=== PATIENT | female | born 1940 | race Caucasian/White ===

== ENCOUNTER → 2016-10-27 | Day surgery (SDC) | payer MEDICARE, OTHER ==
[2016-10-26 12:38] LABS: PROTHROMBIN TIME 10.6 SECONDS (9.0-12.4)
[~2016-10-27] MED LIST: ANTIVERT25 MG PO; GLUCOPHAGE500 MG PO; GLYBURIDE5 MG PO; HCTZ W/SPIRONOL1 TAB PO; LOMOTIL,LONOX 01 TAB PO; PRAVACHOL80 MG PO; VICTOZA6 MG/ML SC; VITAMIN D5000 I2 PO; ZEGERID 40 MG-11 CAP PO; ZOFRAN4 MG PO
== END | disposition home or self-care (01) ==
LOC: SDC 10-22 09:30
PROVIDERS: Surgery
DX: E04.1 Nontoxic single thyroid nodule (principal); Z53.9 Procedure and treatment not carried out, unspecified reason

== ENCOUNTER 2017-01-16 14:12 | Emergency (ER) | payer MEDICARE, OTHER ==
[~2017-01-16] VITALS: Wt 83.0 kg
[2017-01-16 14:18] VITALS: BP 198/80
[2017-01-16] MEDS ORDERED: CEFADROXIL500 M1 PO (14:33)
== END 2017-01-16 14:38 | disposition home or self-care (01) ==
LOC: ED 14:12
DX: S61.012A Laceration without foreign body of left thumb without damage to nail, initial encounter (principal); Z90.710 Acquired absence of both cervix and uterus; Z79.899 Other long term (current) drug therapy; Z88.5 Allergy status to narcotic agent; Z79.82 Long term (current) use of aspirin; W26.8XXA Contact with other sharp object(s), not elsewhere classified, initial encounter; Y93.89 Activity, other specified; Y92.89 Other specified places as the place of occurrence of the external cause; Y99.9 Unspecified external cause status

== ENCOUNTER 2017-03-28 15:41 | Emergency (ER) | payer MEDICARE, OTHER ==
[~2017-03-28] VITALS: Wt 77.1 kg
[~2017-03-28 15:41] MED LIST changes: +CEFADROXIL500 M1 PO
[2017-03-28 15:49] VITALS: BP 156/78
[2017-03-28] MEDS ORDERED: NAPROSYN500 MG PO (16:56)
== END 2017-03-28 17:09 | disposition home or self-care (01) ==
LOC: ED 15:41
DX: S80.02XA Contusion of left knee, initial encounter (principal); S00.531A Contusion of lip, initial encounter; M25.512 Pain in left shoulder; M54.2 Cervicalgia; Z88.6 Allergy status to analgesic agent; Z79.899 Other long term (current) drug therapy; W18.09XA Striking against other object with subsequent fall, initial encounter; Y93.89 Activity, other specified; Y92.89 Other specified places as the place of occurrence of the external cause; Y99.8 Other external cause status

== ENCOUNTER → 2017-07-26 | Outpatient (CLI) | payer MEDICARE, OTHER ==
[~2017-07-26] MED LIST changes: +NAPROSYN500 MG PO
== END | disposition home or self-care (01) ==
LOC: MAMMO 13:24
DX: Z12.31 Encounter for screening mammogram for malignant neoplasm of breast (principal)

== ENCOUNTER → 2019-01-31 | Outpatient (CLI) | payer OTHER ==
[~2019-01-31] MED LIST changes: +CLOPIDOGREL75 MG PO; +GLUCOPHAGE500 M1 PO; +HYDROCHLOROTHIA25 M1 PO; +LANTUS SOL100 UNIT/1 SQ; +LATANOPROST2.5 ML OP; +NORVASC5 MG PO; +VICTOZA 3-PAK6 MG/ML SC; +VITAMIN D-32000 UNI1 PO
[2019-01-31 14:38] LABS: BASO # 0.1 10*3/uL (0.0-0.1); BASO % 0.6 % (0.0-1.0); EOS # 0.2 10*3/uL (0.0-0.4); EOS % 2.1 % (1.0-4.0); HEMATOCRIT 42.7 % (37.0-47.0); HEMOGLOBIN 13.5 g/dl (12.0-16.0); LYMPH % 31.2 % (27.0-41.0); MEAN CELL VOLUME 99.1 fl (81.0-99.0); MEAN CORPUSCULAR HGB 31.3 pg (27.0-31.0); MEAN CORPUSCULAR HGB CONC 31.6 g/dl (33.0-37.0); MEAN PLATELET VOLUME 12.8 fl (9.6-12.3); MONO # 0.7 10*3/uL (0.1-1.0); MONO % 7.1 % (3.0-9.0); NEUT # 5.6 10*3/uL (2.3-7.9); NEUT % 58.8 % (47.0-73.0); PLATELET COUNT AUTOMATED 227 10*3/uL (130-400); RED BLOOD COUNT 4.31 10*6/uL (4.10-5.10); RED CELL DISTRI WIDTH 13.6 % (0-14.5); WHITE BLOOD COUNT 9.6 10*3/uL (4.8-10.8)
[2019-01-31 15:08] LABS: ALBUMIN 3.3 gm/dl (3.1-4.5); ALKALINE PHOSPHATASE 58 U/L (45-117); BUN 23 mg/dl (7-24); CHLORIDE 103 mmol/L (98-107); CHOLESTEROL 242 mg/dL (<200); CPK 53 U/L (26-192); CREATININE 0.98 mg/dL (0.55-1.02); FREE T4 1.16 ng/dl (0.76-1.46); HDL CHOLESTEROL 48 mg/dl (40-60); LDL CHOLESTEROL 153 mg/dL (9-159); SGOT/AST 23 IU/L (3-35); SGPT/ALT 24 U/L (12-78); SODIUM 138 mmol/L (136-145); TOTAL PROTEIN 7.5 gm/dL (6.4-8.2); TRIGLYCERIDES 207 mg/dl (<150); VLDL CHOLESTEROL 41 mg/dL (6-40)
[2019-01-31 15:13] LABS: THYROID STIM HORMONE (HS) 0.493 uIU/ml (0.358-4.75)
== END | disposition home or self-care (01) ==
LOC: LAB 13:07
PROVIDERS: Internal Medicine
DX: E55.9 Vitamin D deficiency, unspecified (principal); E11.9 Type 2 diabetes mellitus without complications; D51.9 Vitamin B12 deficiency anemia, unspecified; D52.9 Folate deficiency anemia, unspecified; Z79.899 Other long term (current) drug therapy

== ENCOUNTER → 2019-02-05 | Outpatient (CLI) | payer OTHER | END | disposition home or self-care (01) | LOC: LAB 12:17 | DX: E55.9 Vitamin D deficiency, unspecified (principal); E11.9 Type 2 diabetes mellitus without complications; D51.9 Vitamin B12 deficiency anemia, unspecified; D52.9 Folate deficiency anemia, unspecified ==

== ENCOUNTER 2020-05-05 10:23 | Observation (INO) | payer OTHER ==
[2020-05-05] VITALS (9 sets, daily range): BP systolic 135–180; BP diastolic 51–80
[~2020-05-05] VITALS: Ht 154.9 cm; Wt 75.0 kg
--- NOTE | 2020-05-05 10:50 | NUR ---
GISELA TO OBTAIN IV ACCESS AFTER 2 ATTEMPTS FROM EMS AND MULTIPLE FROM THIS RN.
[2020-05-05 11:06] LABS: BASO # 0.1 10*3/uL (0.0-0.1); BASO % 0.6 % (0.0-1.0); EOS # 0.1 10*3/uL (0.0-0.4); EOS % 1.4 % (1.0-4.0); HEMATOCRIT 40.6 % (37.0-47.0); LYMPH # 3.1 10*3/uL (1.3-4.4); LYMPH % 33.1 % (27.0-41.0); MEAN CELL VOLUME 98.1 fl (81.0-99.0); MEAN CORPUSCULAR HGB 30.9 pg (27.0-31.0); MEAN CORPUSCULAR HGB CONC 31.5 g/dl (33.0-37.0); MEAN PLATELET VOLUME 12.4 fl (9.6-12.3); MONO # 0.7 10*3/uL (0.1-1.0); MONO % 7.6 % (3.0-9.0); NEUT # 5.4 10*3/uL (2.3-7.9); NEUT % 57.2 % (47.0-73.0); PLATELET COUNT AUTOMATED 219 10*3/uL (130-400); RED BLOOD COUNT 4.14 10*6/uL (4.10-5.10); RED CELL DISTRI WIDTH 13.6 % (0-14.5); WHITE BLOOD COUNT 9.5 10*3/uL (4.8-10.8)
[2020-05-05 11:16] LABS: ACT PARTIAL THROMBO TIME 22.9 SECONDS (20.0-32.1)
[2020-05-05 11:22] LABS: ALBUMIN 3.2 gm/dl (3.1-4.5); ALKALINE PHOSPHATASE 61 U/L (45-117); BUN 27 mg/dl (7-24); CHLORIDE 105 mmol/L (98-107); CREATININE 1.32 mg/dL (0.55-1.02); LIPASE 190 U/L (73-393); POTASSIUM 4.1 mmol/L (3.5-5.1); SGOT/AST 16 IU/L (3-35); SGPT/ALT 19 U/L (12-78); SODIUM 138 mmol/L (136-145); TOTAL PROTEIN 7.9 gm/dL (6.4-8.2)
[2020-05-05 11:25] LABS: TROPONIN I < 0.015 ng/ml (<0.045)
[2020-05-05 13:06] LABS: BILIRUBIN Negative (Negative); BLOOD Negative (Negative); CLARITY Clear (Clear); COLOR Yellow (Yellow); GLUCOSE Negative (Negative); KETONE Negative (Negative); LEUKO ESTERASE Negative (Negative); NITRITE Negative (Negative); UROBILINOGEN 0.2 E.U./dl (0.0-1.0)
[2020-05-05 13:18] LABS: BACTERIA TRACE; WBC 0-2 wbc/hpf (0-5)
--- NOTE | 2020-05-05 13:52 | NUR ---
UP TO BEDSIDE COMMODE WITH ASSIST.
--- NOTE | 2020-05-05 14:36 | NUR ---
LYING IN BED SEMI FOWLERS, NO DISTRESS OR COMPLAINTS.
--- NOTE | 2020-05-05 17:00 | NUR ---
A 80, admitted to 5E, under the services of Dr. RADHA LOUIS,TRAY Martinez with a diagnosis of . Chief complaint is ARF AND DEHYDRATION. Patient arrived via bed from ER. Monitor applied. Initial assessment completed. Vital signs taken and recorded. DR. RADHA LOUIS,TRAY Martinez notified of admission to the unit. Orders received. See assessment for past medical history, medications and allergies. Patient and/or family oriented to unit. [facility] visitation policy reviewed. Clothing/patient valuable form completed. MARITZA LOPES
[2020-05-05] MEDS ORDERED: ATENOLOL25 MG PO (17:29)
[2020-05-05] MEDS ORDERED: ASPIRIN ADULT L81 M1 PO (18:33)
[2020-05-05] MEDS ORDERED: VITAMIN D350 MC2 PO (18:36)
[2020-05-05] MEDS ORDERED: ZETIA10 MG PO (18:38)
--- NOTE | 2020-05-05 18:40 | NUR ---
MEDS UPDATED PER PT LIST ATENOLOL DOSE IS QUESTIONABLE
--- NOTE | 2020-05-05 20:00 | NUR ---
PATIENT RESTING IN BED. VOICES NO COMPLAINTS. RESPIRATIONS EASY, NON LABORED. BED IN LOWEST POSITION,CALL LIGHT WITHIN REACH. BED ALARM ON. WILL CONTINUE TO MONITOR.
--- NOTE | 2020-05-05 21:00 | NUR ---
PATIENT UP TO BEDSIDE COMMODE, LEFT SIDE WEAKNESS NOTED. PATIENT 2 ASSIST.
[2020-05-06] VITALS: BP 127/5; BP 127/50
--- NOTE | 2020-05-06 04:00 | NUR ---
PATIENT SLEEPING. NO SIGNS OF DISTRESS. RESPIRATIONS EASY, NON LABORED. BED IN LOWEST POSITION,CALL LIGHT WITHIN REACH. WILL CONTINUE TO MONITOR.
[2020-05-06 06:54] LABS: BASO # 0.1 10*3/uL (0.0-0.1); BASO % 0.5 % (0.0-1.0); EOS # 0.2 10*3/uL (0.0-0.4); EOS % 2.4 % (1.0-4.0); HEMATOCRIT 41.2 % (37.0-47.0); LYMPH # 3.5 10*3/uL (1.3-4.4); LYMPH % 37.6 % (27.0-41.0); MEAN CELL VOLUME 96.7 fl (81.0-99.0); MEAN CORPUSCULAR HGB 30.8 pg (27.0-31.0); MEAN CORPUSCULAR HGB CONC 31.8 g/dl (33.0-37.0); MEAN PLATELET VOLUME 12.1 fl (9.6-12.3); MONO # 0.8 10*3/uL (0.1-1.0); MONO % 8.2 % (3.0-9.0); NEUT # 4.8 10*3/uL (2.3-7.9); NEUT % 51.1 % (47.0-73.0); PLATELET COUNT AUTOMATED 201 10*3/uL (130-400); RED BLOOD COUNT 4.26 10*6/uL (4.10-5.10); RED CELL DISTRI WIDTH 13.5 % (0-14.5); WHITE BLOOD COUNT 9.4 10*3/uL (4.8-10.8)
[2020-05-06 07:04] LABS: BUN 20 mg/dl (7-24); CHLORIDE 105 mmol/L (98-107); CREATININE 1.05 mg/dL (0.55-1.02); POTASSIUM 3.7 mmol/L (3.5-5.1); SODIUM 133 mmol/L (136-145)
[2020-05-06 08:00] VITALS: BP 151/71
--- NOTE | 2020-05-06 09:00 | NUR ---
Pattern Technician in to talk to patient. Patient states lives at home alone with her friends checking in on her. There are 0 steps in the home. There are 2 steps outside. Physician: Dr. Jaime Dangelo Pharmacy: [facility]: has had [facility] in the past Patient's level of ADLs: MINIMAL ASSIST Patient has working utilities: yes DME: cane, walker Follow-up physician's appointment after d/c: she prefers to make her own follow up appt after discharge Does patient want to access PORTAL?: no Discharge plan discussed with patient. She lives at home alone with her friends checking in on her. She is independent in her ADLs and ambulates with either a cane or a walker. Discussed short term rehab and home health care services and she is agreeable. She would like to see what therapy suggests. When provided with a list of facilities she chose [facility] and [facility]. Discharge plan undecided at this time. CM will continue to follow for any discharge planning needs. She states a friend will provide transportation upon discharge. SKYE SANCHEZ
--- NOTE | 2020-05-06 11:01 | NUR ---
PHYSICAL THERAPY Physical Therapy evaluation completed on 5th floor with full evaluation to follow. Recommend physical therapy per plan of care and SNF vs inpatient rehab upon discharge. Thank you for this referral. Justyna San PT
--- NOTE | 2020-05-06 11:01 | NUR ---
Occupational Therapy evaluation completed on five with full evaluation to follow. Recommend occupational therapy per plan of care and SNF upon discharge. Thank you for this referral. Mia Horan OTR/L
[2020-05-06 12:00] VITALS: BP 136/73
--- NOTE | 2020-05-06 12:04 | NUR ---
IT PROGRAM ENGAGEMENT DIRECTOR FAXED REFERRAL TO [facility]. PRECERT WILL BE REQUIRED. WILL NEED PT/OT EVALS TO COMPLETE REFERRAL.
[2020-05-06 16:00] VITALS: BP 129/41
[2020-05-06 20:00] VITALS: BP 144/62
[2020-05-07] VITALS: BP 136/51
[2020-05-07 06:55] LABS: POTASSIUM 4.2 mmol/L (3.5-5.1)
[2020-05-07 07:06] LABS: CREATININE 1.3 mg/dL (0.55-1.02)
[2020-05-07 08:00] VITALS: BP 145/90
--- NOTE | 2020-05-07 08:02 | NUR ---
CM in to see patient. Discussed [facility] or home with [facility]. She states she doesn't think she will be able to go home yet and wishes to go to [facility]. final assembly worker notified.
--- NOTE | 2020-05-07 08:05 | NUR ---
[facility] IS ABLE TO ACCEPT THIS PATIENT. PRECERT IS REQUIRED. CATALYST OPERATOR GASOLINE ASKED [facility] TO START PRECERT. MACHINE HOSE CUTTER IS AWARE.
--- NOTE | 2020-05-07 09:45 | NUR ---
PATIENT HAS BEEN ACCEPTED TO [facility]. TRANSFER MAN REQUESTED PRECERT BE STARTED. KEYCASE ASSEMBLER IS AWARE.
--- NOTE | 2020-05-07 10:30 | NUR ---
PHYSICAL THERAPY Patient seen this am 1;1 for therapy visit and was sitting up in bedside chair upon therapist arrival. Patient identified by name / and was joined by OT assistant professor surgical technology for observation this session. Patient reports no c/o's pain, however did state L side chronic weakness secondary to prior history of CVA. Patient transfers sit to stand from low chair surface, MIN A, demonstrating slow initial rise and received v/c to improve safe transfer technique. Patient ambulated 5'x 1, use of wh walker, CGA, to BSC, then addtional 15'x 1 to EOB sit. Patient demonstrated slow josh, decreased stride and bouts of L foot drag. Patient instructed on standing L hip flexion ex, completing 5 reps without c/o. Patient ambulated 5'x 1, marching step sequence to improve josh with increased safety. Patient transfered sit to supine, MIN A with LE's and remained in bed with call light, tray table, telephone, bed alarm for safety. Will continue per POC as tolerated, total treatment time 14 minutes. Alverto Correa, DIELECTRIC TESTING MACHINE OPERATOR
--- NOTE | 2020-05-07 10:34 | NUR ---
OT NOTE Pt was seen this A.M. 1:1 for 25 minute OT session. Upon arrival pt was sitting upright in the recliner. Pt identified by name and and had complaints of L sided weakness stating "it is from my past stroke." While seated pt donned B socks with CGA for safety. Sit to stand completed from chair level with Tej and use of w/w for UE support. Challenged pt's static standing tolerance needed for increased I in self care tasks and functional transfers. Pt was able to tolerate aprox 3 minutes before sitting due to fatigue. After a seated rest break pt then completed functional mobility from the chair to the bedside commode with CGA and use of w/w for UE support. Pt transferred on to the bedside commode with CGA and off with Tej due to low surface. Clothing management completed with Tej. Functional mobility was then completed to the EOB with CGA and use of w/w. While sitting EOB pt completed AROM to RUE and AAROM to LUE over all planes of motion for 1 X 10 to increase and restore maximum functional use. Pt transferred sit to supine with Tje for assist with LLE. There she was left with call light in hand, tray table in place, and bed alarm activated for safety. Continue with rec D/C plan to SNF. NICCI Perkins
[2020-05-07 12:00] VITALS: BP 121/56
[2020-05-07 16:00] VITALS: BP 130/50
--- NOTE | 2020-05-07 17:00 | NUR ---
BSG 138. NO VOICED COMPLAINTS PER PT. WILL CONTINUE TO MONITOR.
[2020-05-07 20:00] VITALS: BP 120/72
[2020-05-08] VITALS: BP 137/51
[2020-05-08 06:23] LABS: CREATININE 1.21 mg/dL (0.55-1.02); POTASSIUM 3.8 mmol/L (3.5-5.1)
[2020-05-08 08:00] VITALS: BP 109/35; BP 122/58
--- NOTE | 2020-05-08 08:25 | NUR ---
PRECERT PENDING. PROPERTY UTILIZATION OFFICER FAXED UPDATES TO [facility].
--- NOTE | 2020-05-08 09:10 | NUR ---
OT NOTE Pt was seen this A.M. 1:1 for 16 minute OT session. Upon arrival pt was supine in bed. Pt identified by name and and had no complaints at this time. Pt transferred supine to sit EOB with SBA however required modA to "walk" her hips to the EOB. While sitting EOB pt donned B socks with SBA. Sit to stand completed from bed level with CGA and use of w/w for UE support. Challenged pt's static standing tolerance needed for increased I in self care tasks and functional transfers. Pt was able to tolerate aprox 4 minutes at a time before sitting due to fatigue. Functional mobility was then completed to the bathroom with CGA and use of w/w. There she transferred on to the standard commode with CGA and off with Tej due to low surface. Clothing management completed with Tej. Functional mobility was then completed back to the recliner with CGA and use of w/w with one standing rest break due to fatigue. Pt was left sitting upright in the recliner with call light in hand, tray table in place, and body alarm activated for safety. Continue with rec D/C plan to SNF. SIVAKUMAR Perkins/Joselin
--- NOTE | 2020-05-08 10:48 | NUR ---
PRECERT IS PENDING. PLASTIC BLOCK BOILER RELINER COMPLETED HENS.
[2020-05-08 12:00] VITALS: BP 143/60
--- NOTE | 2020-05-08 15:20 | NUR ---
PHYSICAL THERAPY TREATMENT TIME: IN 08:50 AM - 09:07 AM 17 MINUTES PRESENTATION: Patient was supine in bed with head of bed elevated No IVs No spO2 No catheter Patient identified by name and on wristband Informed consent given by patient COMPLAINTS: Bilareral knee pain when not taking medication for pain No pain at present WB STATUS: NO WT BEARING RESRTICTIONS ASSISTIVE DEVICE: Wh Walker TRANSFERS: Supine <> sitting on EOB: MOD A X 2 Sitting on EOB: SBA STS from EOB: CGA STS <> COMMODE: MIN A X 1 Verbal cues for hand placement TREATMENT: Gait with Wh Walker and CGA FOR 15' X 1 AND A 2ND GAIT FOR 20' X 1 RESPONSE TO TREATMENT: No LOB No SOB NO INCREASED KNEE PAIN CONCLUSION: Patient was left in supine in bed with head of bed eelvated and call light within reach. Bed alarm was on tray table near patient DEAN ODEN DENTAL CHAIRSIDE ASSISTANT
[2020-05-08 16:00] VITALS: BP 146/65
[2020-05-08 20:00] VITALS: BP 137/61
--- NOTE | 2020-05-08 20:48 | NUR ---
BLOOD SUGAR 210; LANTUS PER EMAR. PT. VOICES NO C/O AT THIS TIME. CALL LIGHT WITHIN REACH.
[2020-05-09] VITALS: BP 132/46
--- NOTE | 2020-05-09 07:12 | NUR ---
Notified Dr. Dangelo patient can be discharged to [facility] today if medically stable
--- NOTE | 2020-05-09 07:34 | NUR ---
PRECERT HAS BEEN OBTAINED. PATIENT CAN GO TO [facility] IF MEDICALLY STABLE. PRESCHOOL ADVISER IS AWARE.
[2020-05-09 08:00] VITALS: BP 150/57
--- NOTE | 2020-05-09 09:00 | NUR ---
CM in to see patient. No new needs or request at this time. Discussed receiving insurance authorization and COVID results are negative. Awaiting Dr. Dangelo to round to see if she is medically stable to be discharged today. She verbalized an understanding. stock worker following. When medically stable she will be discharged to [facility].
--- NOTE | 2020-05-09 11:00 | NUR ---
PHYSICAL THERAPY Patient seen this am 1;1 for therapy visit and was supine in bed upon therapist arrival. Patient identified by name / and was very pleasant this morning voicing no new c/o's. OT assistant men's lacrosse coach was also present for observation this session as patient transfers supine to sit EOB with MIN A due to L UE weakness, needing a minute or so to collect herself. Patient completed sit to stand transfer, CGA, use of wh walker standing support, then ambulating CGA, 40'x 1, wh walker, demonstrating very slow josh and mild L foot drag. Patient received v/c to increaed stride with improved heel strike and needed brief 10 second standing rest upon return to bedside chair due to increased fatigue. Patient remained in bedside chair with call light, tray table, telephone and body alarm for safety. Will continue per POC as tolerated, total treatment time 14 minutes. Alverto Correa, WINERY WORKER
--- NOTE | 2020-05-09 11:16 | NUR ---
OT NOTE Pt was seen this A.M. 1:1 for 16 minute OT session. Upon arrival pt was supine in bed. Pt identified by name and and had no complaints at this time. Pt transferred supine to sit EOB with Tej. While sitting EOB pt donned B socks with SBA. Sit to stand completed from bed level with CGA and use of w/w for UE support. Functional mobility completed to the bathroom and back with CGA and use of w/w for UE support with one standing rest break due to fatigue. While seated in the recliner pt completed AROM to her RUE and AAROM to her LUE over all planes of motion for 1 X 10 to increase and restore maximum functional use. Pt was left sitting upright in the recliner with call light in hand, tray table in place, and body alarm activated for safety. Continue with rec D/C plan to SNF. SIVAKUMAR Perkins/Joselin
[2020-05-09 12:00] VITALS: BP 143/54
[2020-05-09] MEDS ORDERED: TYLENOL EXTRA500 M2 PO (12:06)
--- NOTE | 2020-05-09 13:31 | NUR ---
PIPE COVERING MOLDER NOTIFIED OF PATIENT DISCHARGE. PIPE COVERING MOLDER SPOKE WITH CONSUELO MONTEZ WHO WAS SPEAKING WITH RN. PIPE COVERING MOLDER ARRANGED FOR [facility] TO TRANSPORT THIS PATIENT AT 3:30PM. PIPE COVERING MOLDER NOTIFIED AND [facility]. PIPE COVERING MOLDER LEFT MESSAGE FOR BREANNA CONTRERAS AND EXPLAINED SHE IS DISCHARGING. PIPE COVERING MOLDER FAXED DEMOGRAPHICS TO [facility] AND DISCHARGE ORDERS TO [facility].
--- NOTE | 2020-05-09 16:05 | NUR ---
[facility] Discharge instructions reviewed with patient/family. Patient receptive and verbalizes understanding. Follow-up care arranged. Written instructions given to patient/family. TC GALEANO
--- NOTE | 2020-05-12 07:53 | NUR ---
PHYSICAL THERAPY CO-SIGN I approve of the Physical Therapy notes written above. Justyna San PT
--- NOTE | 2020-05-12 16:01 | NUR ---
OCCUPATIONAL THERAPY CO-SIGN I approve of the Occupational Therapy notes written above. MACI GROSSMAN OTR/Joselin
== END 2020-05-09 16:05 ==
LOC: ED 10:23 → 5E 15:16 → EDHOLD 15:16 → 5E 15:16
PROVIDERS: Emergency Medicine; ADMIT Internal Medicine; ATTEND Internal Medicine
DX: I69.354 Hemiplegia and hemiparesis following cerebral infarction affecting left non-dominant side (principal); M19.09 Primary osteoarthritis, other specified site; I25.10 Atherosclerotic heart disease of native coronary artery without angina pectoris; I12.9 Hypertensive chronic kidney disease with stage 1 through stage 4 chronic kidney disease, or unspecified chronic kidney disease; N18.9 Chronic kidney disease, unspecified; E03.9 Hypothyroidism, unspecified; E55.9 Vitamin D deficiency, unspecified; E78.2 Mixed hyperlipidemia; E66.9 Obesity, unspecified; Z68.32 Body mass index [BMI] 32.0-32.9, adult; Z20.828 Contact with and (suspected) exposure to other viral communicable diseases

== ENCOUNTER 2020-06-16 14:27 | Observation (INO) | payer OTHER ==
[~2020-06-16] VITALS: Ht 154.9 cm; Wt 68.0 kg
[~2020-06-16 14:27] MED LIST changes: +ASPIRIN ADULT L81 M1 PO; +ATENOLOL25 MG PO; +TYLENOL EXTRA500 M2 PO; +VITAMIN D350 MC2 PO; +ZETIA10 MG PO
[2020-06-16 14:39] VITALS: BP 173/67
[2020-06-16 15:20] LABS: BASO % 0.2 % (0.0-1.0); EOS # 0.1 10*3/uL (0.0-0.4); EOS % 0.4 % (1.0-4.0); HEMATOCRIT 39.2 % (37.0-47.0); LYMPH # 2.4 10*3/uL (1.3-4.4); LYMPH % 18.8 % (27.0-41.0); MEAN CELL VOLUME 94.7 fl (81.0-99.0); MEAN CORPUSCULAR HGB 30.7 pg (27.0-31.0); MEAN CORPUSCULAR HGB CONC 32.4 g/dl (33.0-37.0); MONO # 0.9 10*3/uL (0.1-1.0); MONO % 7.4 % (3.0-9.0); NEUT # 9.3 10*3/uL (2.3-7.9); PLATELET COUNT AUTOMATED 254 10*3/uL (130-400); RED BLOOD COUNT 4.14 10*6/uL (4.10-5.10); RED CELL DISTRI WIDTH 13.6 % (0-14.5); WHITE BLOOD COUNT 12.8 10*3/uL (4.8-10.8)
[2020-06-16 15:37] LABS: ALBUMIN 2.6 gm/dl (3.1-4.5); ALKALINE PHOSPHATASE 57 U/L (45-117); BUN 21 mg/dl (7-24); CHLORIDE 102 mmol/L (98-107); CREATININE 1.01 mg/dL (0.55-1.02); POTASSIUM 3.5 mmol/L (3.5-5.1); SGOT/AST 17 IU/L (3-35); SGPT/ALT 18 U/L (12-78); SODIUM 140 mmol/L (136-145); TOTAL PROTEIN 7.3 gm/dL (6.4-8.2)
[2020-06-16 16:05] VITALS: BP 166/70
[2020-06-16 18:38] VITALS: BP 146/58
[2020-06-16] MEDS ORDERED: TRAZODONE50 MG PO (19:06)
[2020-06-16] MEDS ORDERED: PRAMIPEXOLE DI0.5 MG PO (19:07)
[2020-06-16] MEDS ORDERED: HYDROCHLOROTHIA25 M1 PO (19:07)
[2020-06-16 19:46] LABS: BILIRUBIN Negative (Negative); BLOOD Negative (Negative); CLARITY Clear (Clear); COLOR Yellow (Yellow); GLUCOSE 2+ (Negative); KETONE 1+ (Negative); LEUKO ESTERASE Negative (Negative); NITRITE Negative (Negative); SPECIFIC GRAVITY 1.025 (1.001-1.030)
[2020-06-16 19:59] LABS: BACTERIA TRACE; COARSE GRANULAR CAST 0-2; RBC 0-2 rbc/hpf (0-2)
[2020-06-17] VITALS: BP 120/74
[2020-06-17] MEDS ORDERED: ASPIRIN ADULT L81 M1 PO (03:59)
[2020-06-17] MEDS ORDERED: HYDR25T PO (04:00)
[2020-06-17] MEDS ORDERED: HYDROCHLOROTHIA25 M1 PO (04:02)
[2020-06-17 08:00] VITALS: BP 147/62
[2020-06-17 16:00] VITALS: BP 134/61
[2020-06-17 20:00] VITALS: BP 138/58
[2020-06-18] VITALS: BP 142/90
[2020-06-18 08:00] VITALS: BP 136/81
[2020-06-18 12:00] VITALS: BP 130/76
[2020-06-18 16:00] VITALS: BP 137/86
[2020-06-18 20:00] VITALS: BP 131/55
[2020-06-19] VITALS: BP 127/57
[2020-06-19 08:00] VITALS: BP 149/59
[2020-06-19 12:00] VITALS: BP 157/65
[2020-06-19 16:00] VITALS: BP 142/61
[2020-06-20] VITALS: BP 126/53
[2020-06-20 08:00] VITALS: BP 115/58
[2020-06-20 08:36] LABS: BASO % 0.4 % (0.0-1.0); EOS # 0.1 10*3/uL (0.0-0.4); EOS % 0.9 % (1.0-4.0); HEMATOCRIT 37.8 % (37.0-47.0); LYMPH % 24.6 % (27.0-41.0); MEAN CELL VOLUME 96.7 fl (81.0-99.0); MEAN CORPUSCULAR HGB 30.7 pg (27.0-31.0); MEAN CORPUSCULAR HGB CONC 31.7 g/dl (33.0-37.0); MEAN PLATELET VOLUME 11.4 fl (9.6-12.3); MONO # 0.7 10*3/uL (0.1-1.0); MONO % 9.1 % (3.0-9.0); NEUT # 5.3 10*3/uL (2.3-7.9); NEUT % 64.8 % (47.0-73.0); PLATELET COUNT AUTOMATED 279 10*3/uL (130-400); RED BLOOD COUNT 3.91 10*6/uL (4.10-5.10); RED CELL DISTRI WIDTH 13.9 % (0-14.5); WHITE BLOOD COUNT 8.1 10*3/uL (4.8-10.8)
[2020-06-20 09:02] LABS: BUN 17 mg/dl (7-24); CHLORIDE 98 mmol/L (98-107); POTASSIUM 3.7 mmol/L (3.5-5.1); SODIUM 137 mmol/L (136-145)
[2020-06-20 12:17] VITALS: BP 113/55
[2020-06-20] MEDS ORDERED: NEURONTIN100 MG PO (13:08)
== END 2020-06-20 13:39 ==
LOC: ED 14:27 → EDHOLD 15:52 → 4E 15:52
PROVIDERS: Nurse Practitioner Family; ADMIT Internal Medicine; ATTEND Internal Medicine
DX: I69.354 Hemiplegia and hemiparesis following cerebral infarction affecting left non-dominant side (principal); E43 Unspecified severe protein-calorie malnutrition; I10 Essential (primary) hypertension; H40.9 Unspecified glaucoma; E11.65 Type 2 diabetes mellitus with hyperglycemia; M89.49 Other hypertrophic osteoarthropathy, multiple sites; E66.9 Obesity, unspecified; Z68.33 Body mass index [BMI] 33.0-33.9, adult; I25.10 Atherosclerotic heart disease of native coronary artery without angina pectoris; E87.2 Acidosis; E55.9 Vitamin D deficiency, unspecified; E05.90 Thyrotoxicosis, unspecified without thyrotoxic crisis or storm; Z20.828 Contact with and (suspected) exposure to other viral communicable diseases

== ENCOUNTER 2020-08-29 20:09 | Emergency (ER) | payer MEDICARE ==
[~2020-08-29] VITALS: Ht 165.1 cm; Wt 104.3 kg
[~2020-08-29 20:09] MED LIST changes: +HYDR25T PO; +NEURONTIN100 MG PO; +PRAMIPEXOLE DI0.5 MG PO; +TRAZODONE50 MG PO
[2020-08-29 21:25] LABS: BASO % 0.4 % (0.0-1.0); EOS # 0.3 10*3/uL (0.0-0.4); EOS % 3.1 % (1.0-4.0); HEMATOCRIT 36.2 % (37.0-47.0); LYMPH # 2.9 10*3/uL (1.3-4.4); LYMPH % 31.2 % (27.0-41.0); MEAN CELL VOLUME 101.4 fl (81.0-99.0); MEAN CORPUSCULAR HGB 31.9 pg (27.0-31.0); MEAN CORPUSCULAR HGB CONC 31.5 g/dl (33.0-37.0); MEAN PLATELET VOLUME 11.3 fl (9.6-12.3); MONO # 0.9 10*3/uL (0.1-1.0); MONO % 9.6 % (3.0-9.0); NEUT # 5.1 10*3/uL (2.3-7.9); NEUT % 55.5 % (47.0-73.0); PLATELET COUNT AUTOMATED 248 10*3/uL (130-400); RED BLOOD COUNT 3.57 10*6/uL (4.10-5.10); WHITE BLOOD COUNT 9.2 10*3/uL (4.8-10.8)
[2020-08-29 21:42] LABS: ALBUMIN 2.8 gm/dl (3.1-4.5); ALKALINE PHOSPHATASE 59 U/L (45-117); BUN 46 mg/dl (7-24); CHLORIDE 105 mmol/L (98-107); CREATININE 1.25 mg/dL (0.55-1.02); POTASSIUM 4.2 mmol/L (3.5-5.1); SGOT/AST 14 IU/L (3-35); SGPT/ALT 18 U/L (12-78); SODIUM 140 mmol/L (136-145); TOTAL PROTEIN 7.1 gm/dL (6.4-8.2)
[2020-08-29 21:51] LABS: BILIRUBIN Negative (Negative); BLOOD Negative (Negative); CLARITY Clear (Clear); COLOR Yellow (Yellow); GLUCOSE Negative (Negative); KETONE Negative (Negative); LEUKO ESTERASE Negative (Negative); NITRITE Negative (Negative); PH 5.5 (4.5-8.0); UROBILINOGEN 0.2 E.U./dl (0.0-1.0)
[2020-08-29 21:51] LABS: TROPONIN I < 0.015 ng/ml (<0.045)
[2020-08-29 21:55] LABS: BACTERIA 2+; EPITHELIAL CELLS 0-2; HYALINE CAST 0-2; MUCOUS TRACE; RBC 0-2 rbc/hpf (0-2); WBC 0-2 wbc/hpf (0-5)
[2020-08-29 22:34] VITALS: BP 156/75
== END 2020-08-30 02:57 | disposition home or self-care (01) ==
LOC: ED 20:09
PROVIDERS: Emergency Medicine
DX: R41.0 Disorientation, unspecified (principal); R47.81 Slurred speech; E11.9 Type 2 diabetes mellitus without complications; I10 Essential (primary) hypertension; Z86.73 Personal history of transient ischemic attack (TIA), and cerebral infarction without residual deficits; Z88.6 Allergy status to analgesic agent; Z88.8 Allergy status to other drugs, medicaments and biological substances; Z79.899 Other long term (current) drug therapy; Z79.82 Long term (current) use of aspirin; Z79.4 Long term (current) use of insulin; Z90.711 Acquired absence of uterus with remaining cervical stump

== ENCOUNTER 2021-07-17 10:22 | Emergency (ER) | payer MEDICARE ==
[~2021-07-17] VITALS: Ht 152.4 cm; Wt 76.2 kg
[2021-07-17 10:57] LABS: BASO # 0.1 10*3/uL (0.0-0.1); BASO % 0.5 % (0.0-1.0); EOS # 0.1 10*3/uL (0.0-0.4); EOS % 1.2 % (1.0-4.0); HEMATOCRIT 34.7 % (37.0-47.0); LYMPH # 2.3 10*3/uL (1.3-4.4); LYMPH % 21.9 % (27.0-41.0); MEAN CELL VOLUME 103.9 fl (81.0-99.0); MEAN CORPUSCULAR HGB 32.9 pg (27.0-31.0); MEAN CORPUSCULAR HGB CONC 31.7 g/dl (33.0-37.0); MEAN PLATELET VOLUME 11.9 fl (9.6-12.3); MONO # 0.9 10*3/uL (0.1-1.0); MONO % 8.6 % (3.0-9.0); NEUT # 7.2 10*3/uL (2.3-7.9); NEUT % 67.4 % (47.0-73.0); PLATELET COUNT AUTOMATED 224 10*3/uL (130-400); RED BLOOD COUNT 3.34 10*6/uL (4.10-5.10); RED CELL DISTRI WIDTH 13.2 % (0-14.5); WHITE BLOOD COUNT 10.7 10*3/uL (4.8-10.8)
[2021-07-17 11:14] LABS: ALBUMIN 2.8 gm/dl (3.1-4.5); CREATININE 1.37 mg/dL (0.55-1.02); POTASSIUM 4.5 mmol/L (3.5-5.1); TOTAL PROTEIN 7.2 gm/dL (6.4-8.2)
[2021-07-17 12:19] LABS: BILIRUBIN Negative (Negative); BLOOD Trace-Lysed (Negative); CLARITY Cloudy (Clear); COLOR Yellow (Yellow); GLUCOSE Negative (Negative); KETONE Negative (Negative); LEUKO ESTERASE Trace (Negative); NITRITE Positive (Negative); UROBILINOGEN 0.2 E.U./dl (0.0-1.0)
[2021-07-17 12:32] LABS: BACTERIA 4+; WBC 16-20 wbc/hpf (0-5)
[2021-07-17] MEDS ORDERED: OMNICEF300 MG PO (12:37)
[2021-07-17 13:32] VITALS: BP 128/62
== END 2021-07-17 14:48 ==
LOC: ED 10:22
PROVIDERS: Student in an Organized Health Care Education/Training Program
DX: E86.0 Dehydration (principal); N39.0 Urinary tract infection, site not specified

== ENCOUNTER 2021-11-20 07:57 | Inpatient (IN) | payer MEDICARE ==
[~2021-11-20] VITALS: Ht 154.9 cm; Wt 80.1 kg
[~2021-11-20 07:57] MED LIST changes: +OMNICEF300 MG PO
[2021-11-20 08:01] VITALS: BP 127/50
[2021-11-20 08:35] LABS: BASO % 0.4 % (0.0-1.0); EOS # 0.1 10*3/uL (0.0-0.4); EOS % 0.9 % (1.0-4.0); HEMATOCRIT 36.4 % (37.0-47.0); LYMPH # 0.7 10*3/uL (1.3-4.4); LYMPH % 6.9 % (27.0-41.0); MEAN CELL VOLUME 100.8 fl (81.0-99.0); MEAN CORPUSCULAR HGB 32.1 pg (27.0-31.0); MEAN CORPUSCULAR HGB CONC 31.9 g/dl (33.0-37.0); MEAN PLATELET VOLUME 11.4 fl (9.6-12.3); MONO # 0.8 10*3/uL (0.1-1.0); MONO % 7.9 % (3.0-9.0); NEUT # 8.2 10*3/uL (2.3-7.9); NEUT % 83.6 % (47.0-73.0); PLATELET COUNT AUTOMATED 202 10*3/uL (130-400); RED BLOOD COUNT 3.61 10*6/uL (4.10-5.10); RED CELL DISTRI WIDTH 13.5 % (0-14.5); WHITE BLOOD COUNT 9.8 10*3/uL (4.8-10.8)
[2021-11-20 08:46] LABS: ACT PARTIAL THROMBO TIME 27.8 SECONDS (20.0-32.1)
[2021-11-20 08:50] LABS: CREATININE 1.46 mg/dL (0.55-1.02); POTASSIUM 4.9 mmol/L (3.5-5.1); TOTAL PROTEIN 6.9 gm/dL (6.4-8.2)
[2021-11-20 09:31] LABS: BILIRUBIN Negative (Negative); BLOOD Trace-Lysed (Negative); CLARITY Cloudy (Clear); COLOR Yellow (Yellow); GLUCOSE Negative (Negative); KETONE Negative (Negative); LEUKO ESTERASE 2+ (Negative); NITRITE Positive (Negative); PH 5.5 (4.5-8.0); UROBILINOGEN 0.2 E.U./dl (0.0-1.0)
[2021-11-20 09:51] LABS: BACTERIA 4+; WBC 51-100 wbc/hpf (0-5)
[2021-11-20 11:33] VITALS: BP 118/72
[2021-11-20 12:20] VITALS: BP 117/85
[2021-11-20] MEDS ORDERED: ATORVASTATIN CA40 M1 PO (13:47)
[2021-11-20] MEDS ORDERED: METOCLOPRAMIDE H5 M2 PO (13:48)
[2021-11-20] MEDS ORDERED: BRIMONIDINE TART5 ML OPH (13:50)
[2021-11-20 16:00] VITALS: BP 144/73
[2021-11-20 20:00] VITALS: BP 136/41
[2021-11-21] VITALS: BP 108/46
[2021-11-21 06:31] LABS: BASO % 0.4 % (0.0-1.0); EOS # 0.3 10*3/uL (0.0-0.4); EOS % 3.8 % (1.0-4.0); HEMATOCRIT 33.3 % (37.0-47.0); LYMPH # 2.4 10*3/uL (1.3-4.4); LYMPH % 35.1 % (27.0-41.0); MEAN CELL VOLUME 100.3 fl (81.0-99.0); MEAN CORPUSCULAR HGB 32.5 pg (27.0-31.0); MEAN CORPUSCULAR HGB CONC 32.4 g/dl (33.0-37.0); MEAN PLATELET VOLUME 11.7 fl (9.6-12.3); MONO # 1.1 10*3/uL (0.1-1.0); MONO % 16.3 % (3.0-9.0); NEUT % 44.3 % (47.0-73.0); PLATELET COUNT AUTOMATED 171 10*3/uL (130-400); RED BLOOD COUNT 3.32 10*6/uL (4.10-5.10); RED CELL DISTRI WIDTH 13.7 % (0-14.5); WHITE BLOOD COUNT 6.9 10*3/uL (4.8-10.8)
[2021-11-21 07:05] LABS: CHLORIDE 110 mmol/L (98-107); SODIUM 140 mmol/L (136-145)
[2021-11-21 07:09] LABS: ALKALINE PHOSPHATASE 39 U/L (45-117); CREATININE 1.03 mg/dL (0.55-1.02); SGOT/AST 20 IU/L (3-35); SGPT/ALT 15 U/L (12-78); TOTAL PROTEIN 6.2 gm/dL (6.4-8.2)
[2021-11-21 07:12] LABS: BUN 33 mg/dl (7-24)
[2021-11-21 08:00] VITALS: BP 137/61
[2021-11-21 12:00] VITALS: BP 128/53
[2021-11-21 16:00] VITALS: BP 140/52
[2021-11-21 20:00] VITALS: BP 149/69
[2021-11-22] VITALS: BP 144/49
[2021-11-22 08:00] VITALS: BP 130/48
[2021-11-22 12:00] VITALS: BP 139/51
[2021-11-22] MEDS ORDERED: CIPRO500 MG PO (15:11)
== END 2021-11-22 18:45 | DRG 689 ==
LOC: ED 07:57 → EDHOLD 10:59 → 4E 10:59
PROVIDERS: Internal Medicine; ADMIT Internal Medicine; ATTEND Internal Medicine
DX: N39.0 Urinary tract infection, site not specified (principal); G93.41 Metabolic encephalopathy; N17.0 Acute kidney failure with tubular necrosis; E43 Unspecified severe protein-calorie malnutrition; I69.354 Hemiplegia and hemiparesis following cerebral infarction affecting left non-dominant side; B96.20 Unspecified Escherichia coli [E. coli] as the cause of diseases classified elsewhere; E11.9 Type 2 diabetes mellitus without complications; E03.9 Hypothyroidism, unspecified; R26.2 Difficulty in walking, not elsewhere classified; R62.7 Adult failure to thrive; M19.90 Unspecified osteoarthritis, unspecified site; E66.9 Obesity, unspecified; I25.10 Atherosclerotic heart disease of native coronary artery without angina pectoris; E55.9 Vitamin D deficiency, unspecified; I10 Essential (primary) hypertension; E78.2 Mixed hyperlipidemia; Z88.5 Allergy status to narcotic agent; Z88.8 Allergy status to other drugs, medicaments and biological substances; Z68.33 Body mass index [BMI] 33.0-33.9, adult